=== PATIENT | female | born 1975 | race Caucasian/White ===

== ENCOUNTER 2020-01-09 10:12 | Emergency (ER) | payer BC, OTHER ==
--- NOTE | 2020-01-09 10:35 | UC ---
Abdominal Pain Female HPI - HPI Summary HPI Summary: 44 yo female presents with LEFT pelvic pain. She tells me that the night of she developed left pelvic pain that was 4/10 in severity. On 01/07 she had 8-9 /10 pain in the area that she describes as cramp-like in nature. The pain made her nauseous. She took ibuprofen and lying on her RIGHT side improved the pain to 5/10. As the day went on her pain subsided and today is very mild to 1-2/10. She has a hx of diverticulitis, but states this feels different than episodes of that she has had in the past. She has had a partial hyster (still has both ovaries). She denies fever, chills, vomiting, diarrhea, constipation, back/ flank pain, dysuria, hematuria, vaginal bleeding or discharge. - History of Current Complaint Stated Complaint: LEFT SIDE SIGN Hx Obtained From: Patient Onset/Duration: Sudden Onset Severity Initially: Severe Severity Currently: Mild Pain Intensity: 2 Pain Scale Used: 0-10 Numeric Allergies/Adverse Reactions: Allergies Allergy/AdvReac Type Severity Reaction Status Date / Time No Known Allergies Allergy Verified 01/09/20 11:56 Home Medications: Home Medications NK [No Home Medications Reported] 01/09/20 [History Confirmed 01/09/20] PMH/Surg Hx/FS Hx/Imm Hx - Additional Past Medical History Additional PMH: ITP Diverticulosis - Surgical History Surgical History: Yes Surgery Procedure, Year, and Place: hysterectomy - Family History Known Family History: Positive: None - Social History Lives: With Family Alcohol Use: None Substance Use Type: None Smoking Status (MU): Never Smoked Tobacco - Immunization History Most Recent Influenza Vaccination: NEVER Most Recent Tetanus Shot: 2007 Review of Systems All Other Systems Reviewed And Are Negative: No Constitutional: Positive: Negative Skin: Positive: Negative Respiratory: Positive: Negative Cardiovascular: Positive: Negative Gastrointestinal: Positive: Negative Genitourinary: Positive: Other - Left pelvic pain Motor: Positive: Negative Neurovascular: Positive: Negative Neurological/Mental Status: Positive: Negative Psychological: Positive: Negative Physical Exam - Summary Physical Exam Summary: GENERAL: NAD. WDWN. No pain distress. SKIN: No rashes, sores, lesions, or open wounds. NECK: Supple. Nontender. No lymphadenopathy. CHEST: CTAB. No r/r/w. No accessory muscle use. Breathing comfortably and in no distress. CV: RRR. Pulses intact. Cap refill <2seconds ABDOMEN: Slight tenderness to left pelvis overlying area of concern today. Soft. NTTP abdomen. No distention or guarding. No CVA tenderness. Bowel sounds present NEURO: Alert. PSYCH: Age appropriate behavior. Triage Information Reviewed: Yes Vital Signs: Vital Signs: Temp Pulse Resp BP Pulse Ox 97.5 F 87 16 135/90 98 01/09/20 11:56 01/09/20 11:56 01/09/20 11:56 01/09/20 11:56 01/09/20 11:56 Laboratory Tests 01/09/20 11:26 POC Urine Color Yellow POC Urine Clarity Slightly cloudy POC Urine pH 5.5 POC Ur Specif [place] >= 1.030 POC Urine Protein Negative POC Ur Glucose (UA) Negative POC Urine Ketones Negative POC Urine Blood Negative POC Urine Nitrite Negative POC Urine Bilirubin Negative POC Urine Urobilinogen 0.2 POC U Leukocyte Esteras Trace A Vital Signs Reviewed: Yes Diagnostics - Radiology Transvaginal US Radiology Interpretation Completed By: Radiologist Summary of Radiographic Findings: FINDINGS: The uterus is normal in size, shape and echogenicity. The uterus measured 4.6 x 3.9 x 3.4 cm. The endometrial echo measured 0.9 cm in thickness. The right ovary measured 2.0 x 2.8 x 1.5 cm. The left ovary measured 3.9 x 2.1 x 2.8 cm. A complicated left ovarian cystic structure measures 2.0 x 1.4 x 1.7 cm. Ovarian Doppler signal is detected bilaterally No free intraperitoneal fluid is seen. IMPRESSION: PROBABLE INVOLUTING CYST IN THE LEFT OVARY MEASURES UP TO 2. 0 CM. REPEAT PELVIC ULTRASOUND 2-3 MENSTRUAL CYCLES OR MONTHS TO DOCUMENT RESOLUTION. Abd Pain Female Course/Dx - Course Course Of Treatment: UA with trace leuks - no urinary symptoms, therefore will send for culture and treat prn results. US as above. - Noted measured Uterus on report. I discussed this with pt and she is sure that she had a partial hysterectomy in [address] Wilson and does not have a uterus. - I called Dr. Wilson's office and spoke with him regarding pt and US findings today. He states the measured "uterus" in the US report is a cervical stump from her supracervical hysterectomy. Discussed symptoms and involuted cyst with him and he agrees with likely ruptured ovarian cyst. Discussed the above with pt. Advised tylenol/ibuprofen for discomfort. F/u with Dr. Wilson in 4-6 weeks for likely repeat US. To ER if symptoms worsen or if she develops a fever, vomiting, or new symptoms. - Differential Dx/Diagnosis Provider Diagnosis: Ovarian cyst rupture Discharge ED - Sign-Out/Discharge Documenting (check all that apply): Patient Departure All imaging exams completed and their final reports reviewed: Yes - Discharge Plan Condition: Stable Disposition: HOME Patient Education Materials: Ruptured Ovarian Cyst (ED) Referrals: Antonio Browne NP [Primary Care Provider] - Jin Wilson MD [Medical Doctor] - Additional Instructions: If you develop a fever, shortness of breath, chest pain, new or worsening symptoms - please call your PCP or go to the ED immediately. Your history, exam, and ultrasound results today support a ruptured ovarian cyst. I spoke with Dr. Wilson regarding your case and he agrees with ruptured ovarian cyst. I did discuss with him the measurement of the "uterus" on the ultrasound report and he viewed the images and report -- states this is a "cervical stump" from your supracervical hysterectomy and is not a functioning uterus. May take tylenol/ibuprofen as directed for discomfort. Each day your discomfort should improve. If your pain returns or if you have new symptoms - please go to the ER. - Billing Disposition and Condition Condition: STABLE Disposition: Home
[2020-01-09 11:59] VITALS: BP 135/90
== END 2020-01-09 13:27 | disposition home or self-care (01) ==
LOC: UCEAST 10:12
DX: N83.202 Unspecified ovarian cyst, left side (principal); Z90.711 Acquired absence of uterus with remaining cervical stump
CPT/HCPCS: 76830; 81003; 87086; 99211; G0463

== ENCOUNTER 2023-02-21 12:25 | Observation (INO) ==
[2023-02-21 12:46] LABS: ABS Lymphocytes 1.8 10^3/uL (1.0-4.8); ABS Monocytes 0.7 10^3/uL (0.0-0.9); ABS Neutrophils 6.3 10^3/uL (1.5-7.6); ABS Nucleated RBC 0.01 10^3/ul; Eosinophil % 0.2 %; Hematocrit 40.2 % (35-45); Hemoglobin 13.5 g/dL (11.5-14.3); Lymphocyte % 20.6 %; Mean Corpuscular Hemoglobin 29.9 pg (27-33); Mean Corpuscular Hgb Conc 33.6 g/dL (31-36); Mean Platelet Volume 10.6 fL (7.5-11.2); Nucleated Red Blood Cells % 0.1 /100 WBC (0.0-0.4); Platelet Count 148 10^3/uL (150-450); Red Blood Count 4.52 10^6/uL (3.63-4.92); White Blood Count 8.9 10^3/uL (3.8-11.8)
[2023-02-21] MEDS ORDERED: Ondansetron 4 mg VIAL 2 MG/ML 2 ml VIAL IV ONE (12:51)
[2023-02-21] MEDS ORDERED: Morphine 4 MG/ML VIAL (1 ml) IV ONE ×2 (12:51→13:13)
[2023-02-21 12:53] LABS: INR 1.05 (0.88-1.18)
[2023-02-21 13:02] LABS: Calcium 9.5 mg/dL (8.6-10.3); Creatinine, Serum 0.78 mg/dL (0.51-0.95); Potassium 3.4 mmol/L (3.5-5.0); eGFR CKD-EPI 93.6 (>60)
[2023-02-21] MEDS ORDERED: Iohexol 350 (CONTRAST) 500 ML MDV IV ONE (13:24)
[2023-02-21] MEDS ORDERED: cefTRIAXone 2 gm/50 mL D5W 2 GM/50 ML BAG IV ONE ×2 (14:52→16:57)
[2023-02-21 15:57] LABS: Urine Appearance Clear; Urine Bilirubin Negative (Negative); Urine Blood 2+ (Negative); Urine Color Straw; Urine Glucose 1+(50 mg/dL) (Negative); Urine Ketones 1+ (Negative); Urine Nitrite Negative (Negative); Urine Protein Negative (Negative); Urine Specific Gravity 1.058 (1.002-1.030); Urine Urobilinogen Negative (Negative)
[2023-02-21] MEDS ORDERED: Morphine 2 MG/ML SYRINGE IV PRN (16:05)
[2023-02-21] MEDS ORDERED: Acetaminophen IV 1 GM/100ML 1,000 MG/100 ML BAG IV PRN (16:06)
[2023-02-21 16:08] LABS: Urine Bacteria Absent (Absent); Urine Red Blood Cell 2+(6-10/hpf) (Absent); Urine Squamous Epithelial Cell Present (Absent); Urine White Blood Cell Trace(0-5/hpf) (Absent)
[2023-02-21] MEDS ORDERED: fentaNYL 100 mcg/2 ml 50 MCG/ML VIAL ONE ×2 (17:19→17:45)
[2023-02-21] MEDS ORDERED: Midazolam 2 mg/2 ml VIAL 1 mg/ml 2 ml VIAL (2 mg) ONE (17:19)
[2023-02-21] MEDS ORDERED: Lidocaine 2% PF 5 ML VIAL ONE (17:45)
[2023-02-21] MEDS ORDERED: Dexamethasone IV 4 MG/ML VIAL 1 ml VIAL ONE (17:45)
[2023-02-21] MEDS ORDERED: Propofol 10 MG/ML 20 ML BTL ONE (17:45)
[2023-02-21] MEDS ORDERED: Iohexol 180 (CONTRAST) 10 ML SDV IV ONE (18:36)
[2023-02-21] MEDS ORDERED: Naloxone 0.4 mg VIAL 0.4 mg/ml 1 ml VIAL IV PRN (18:50)
[2023-02-21] MEDS ORDERED: Ondansetron 4 mg VIAL 2 MG/ML 2 ml VIAL IV PRN (18:50)
[2023-02-21] MEDS ORDERED: HYDROmorphone 1 MG/1 ML SYRINGE IV PRN (18:50)
[2023-02-21] MEDS ORDERED: Gentamicin ADULT 160 MG in NS 0.9% 100 ml BAG 100 ML IVPB ONE (19:00)
[2023-02-21] MEDS: LACTATED RINGERS 1000 ML BAG IV SCH (20:08)
[2023-02-21] MEDS: Heparin 5000 UNITS/ML 1 mL VIAL SUBCUT SCH (21:13)
[2023-02-22] MEDS: LACTATED RINGERS 1000 ML BAG IV SCH ×2 (02:44→09:38)
[2023-02-22] MEDS: Heparin 5000 UNITS/ML 1 mL VIAL SUBCUT SCH (05:15)
[2023-02-22 05:36] LABS: ABS Lymphocytes 0.7 10^3/uL (1.0-4.8); ABS Monocytes 0.3 10^3/uL (0.0-0.9); ABS Neutrophils 5.9 10^3/uL (1.5-7.6); Hemoglobin 12.8 g/dL (11.5-14.3); Lymphocyte % 10.2 %; Mean Corpuscular Hemoglobin 29.8 pg (27-33); Mean Corpuscular Hgb Conc 33.7 g/dL (31-36); Mean Corpuscular Volume 88.4 fL (80-97); Mean Platelet Volume 11.1 fL (7.5-11.2); Platelet Count 139 10^3/uL (150-450); Red Cell Distribution Width 14.2 % (12-17); White Blood Count 6.9 10^3/uL (3.8-11.8)
[2023-02-22 06:03] LABS: Calcium 9.1 mg/dL (8.6-10.3); Creatinine, Serum 0.63 mg/dL (0.51-0.95); eGFR CKD-EPI 109.4 (>60)
[2023-02-22 09:46] VITALS: BP 135/97
[2023-02-22] MEDS ORDERED: cefTRIAXone 2 gm/50 mL D5W 2 GM/50 ML BAG IV SCH ×3 (16:15)
== END 2023-02-22 11:57 | disposition home or self-care (01) ==
LOC: ED 12:25 → MED 12:25 → EDSTATUS 16:15 → ED 16:34
PROVIDERS: ADMIT Internal Medicine; ATTEND Internal Medicine